=== PATIENT | male | born 1985 | race Caucasian/White ===

== ENCOUNTER 2017-05-05 16:44 | Emergency (ER) | payer OTHER ==
[2017-05-05] MEDS ORDERED: Sodium Chloride 0.9% 1000 ML 1,000 ML IV STA ×2 (17:14→18:01)
[2017-05-05] MEDS ORDERED: Zofran 4 MG/2 ML VIAL IV ONE ×2 (17:14→18:01)
[2017-05-05] MEDS ORDERED: Sodium Chloride 0.9% 1000 ML 1,000 ML ONE ×2 (17:17→18:07)
[2017-05-05] MEDS ORDERED: Zofran 4 MG/2 ML VIAL ONE ×2 (17:17→18:07)
--- NOTE | 2017-05-05 17:19 | ERPHSYRPT ---
- History of Present Illness Time Seen by Provider: 05/05/17 17:16 Historian: patient Exam Limitations: no limitations Patient Subjective Stated Complaint: staes vomiting and fever since yesterday. denies diarrhea, cough. states fever 102.0 before tylenol. generalized bosy aches. states son had the same thing. Triage Nursing Assessment: alert and oriented x3. skin warm/dry. lungs clear bilat. abdomen soft slightly tender he says since he hasnt been able to eat. denies diaarhea. Physician History: 31 y/o male comes to the ER after having 8 episodes of vomiting that started last night. Pt admits to having fever and chills as well. Pt mentions he is not able to keep anything down. Pt's daughter and son had similar symptoms. Pt denies any abdominal pain, bloody stools, or diarrhea. Timing/Duration: yesterday Activities at Onset: none Associated Symptoms: No diarrhea Allergies/Adverse Reactions: No Known Drug Allergies Allergy (Verified 05/05/17 17:06) Home Medications: Duloxetine HCl [Cymbalta] 90 mg PO DAILY 08/17/16 [History] Celecoxib [Celebrex] 200 mg PO DAILY 05/05/17 [History] Gemfibrozil [Lopid] 600 mg PO DAILY 05/05/17 [History] Hx Tetanus, Diphtheria Vaccination/Date Given: Yes (up to date) Hx Influenza Vaccination/Date Given: Yes Hx Pneumococcal Vaccination/Date Given: No - Review of Systems Constitutional: No Fever, No Chills Eyes: No Symptoms Ears, Nose, & Throat: No Symptoms Respiratory: No Cough, No Dyspnea Cardiac: No Chest Pain, No Edema, No Syncope Abdominal/Gastrointestinal: Nausea, Vomiting, No Abdominal Pain, No Diarrhea Genitourinary Symptoms: No Dysuria Musculoskeletal: No Back Pain, No Neck Pain Skin: No Rash Neurological: No Dizziness, No Focal Weakness, No Sensory Changes Psychological: No Symptoms Endocrine: No Symptoms All Other Systems: Reviewed and Negative - Past Medical History Pertinent Past Medical History: Yes Psycho-Social History: Depression - Past Surgical History Past Surgical History: No - Social History Smoking Status: Never smoker Exposure to second hand smoke: No Drug Use: none Patient Lives Alone: No - Nursing Vital Signs Nursing Vital Signs: Initial Vital Signs Temperature 99.1 F 05/05/17 16:48 Pulse Rate 100 H 05/05/17 16:48 Respiratory Rate 20 05/05/17 16:48 Blood Pressure 125/78 05/05/17 16:48 O2 Sat by Pulse Oximetry 97 05/05/17 16:48 Pain Scale Pain Intensity 6 - Physical Exam General Appearance: mild distress, alert Eye Exam: PERRL/EOMI, eyes nml inspection Ears, Nose, Throat Exam: normal ENT inspection, pharynx normal, moist mucous membranes Neck Exam: normal inspection, non-tender, supple, full range of motion Respiratory Exam: normal breath sounds, lungs clear, No respiratory distress Cardiovascular Exam: regular rate/rhythm, normal heart sounds Gastrointestinal/Abdomen Exam: soft, normal bowel sounds, No tenderness, No mass Back Exam: normal inspection, normal range of motion, No CVA tenderness, No vertebral tenderness Extremity Exam: normal inspection, normal range of motion, pelvis stable Neurologic Exam: alert, oriented x 3, cooperative, normal mood/affect, nml cerebellar function, sensation nml, No motor deficits Skin Exam: normal color, warm, dry SpO2: 97 Oxygen Delivery: Room Air - Course Nursing assessment & vital signs reviewed: Yes Ordered Tests: Active Orders 24 hr Category Date Time Status IV Insertion STAT Care 05/05/17 17:15 Active BMP Stat Lab 05/05/17 17:00 Completed CBC W DIFF Stat Lab 05/05/17 17:00 Completed Medication Summary Generic Name Dose Route Start Last Admin Trade Name Freq PRN Reason Stop Dose Admin Sodium Chloride 1,000 mls @ 999 mls/hr 05/05/17 18:01 05/05/17 18:16 Sodium Chloride 0.9% 1000 Ml IV 05/05/17 19:01 999 mls/hr .Q1H1M STA Administration Discontinued Medications Generic Name Dose Route Start Last Admin Trade Name Freq PRN Reason Stop Dose Admin Sodium Chloride 1,000 mls @ 999 mls/hr 05/05/17 17:14 05/05/17 17:18 Sodium Chloride 0.9% 1000 Ml IV 05/05/17 18:14 999 mls/hr .Q1H1M STA Administration Sodium Chloride Confirm 05/05/17 17:17 Sodium Chloride 0.9% 1000 Ml Administered 05/05/17 17:18 Dose 1,000 mls @ ud .ROUTE .STK-MED ONE Sodium Chloride Confirm 05/05/17 18:07 Sodium Chloride 0.9% 1000 Ml Administered 05/05/17 18:08 Dose 1,000 mls @ ud .ROUTE .STK-MED ONE Ketorolac Tromethamine 30 mg 05/05/17 18:02 05/05/17 18:11 Toradol 30 Mg Injection IV 05/05/17 18:03 30 mg STAT ONE Administration Ketorolac Tromethamine Confirm 05/05/17 18:07 Toradol 30 Mg Injection Administered 05/05/17 18:08 Dose 30 mg .ROUTE .STK-MED ONE Ondansetron HCl 4 mg 05/05/17 17:14 05/05/17 17:18 Zofran 4 Mg/2 Ml Vial IV 05/05/17 17:15 4 mg STAT ONE Administration Ondansetron HCl Confirm 05/05/17 17:17 Zofran 4 Mg/2 Ml Vial Administered 05/05/17 17:18 Dose 4 mg .ROUTE .STK-MED ONE Ondansetron HCl 4 mg 05/05/17 18:01 05/05/17 18:12 Zofran 4 Mg/2 Ml Vial IV 05/05/17 18:02 4 mg STAT ONE Administration Ondansetron HCl Confirm 05/05/17 18:07 Zofran 4 Mg/2 Ml Vial Administered 05/05/17 18:08 Dose 4 mg .ROUTE .STK-MED ONE Lab/Rad Data: Laboratory Result Diagrams 05/05/17 17:00 05/05/17 17:00 Laboratory Results 05/05/17 05/05/17 Range/Units 17:00 17:00 WBC 9.0 (4.0-10.5) K/mm3 RBC 4.94 (4.1-5.6) M/mm3 Hgb 14.5 (12.5-18.0) gm/dl Hct 42.5 (42-50) % MCV 86.0 (78-100) fl MCH 29.4 (26-32) pg MCHC 34.1 (32-36) g/dl RDW 13.0 (11.5-14.0) % Plt Count 275 (150-450) K/mm3 MPV 10.8 H (6-9.5) fl Gran % 78.0 H (36.0-66.0) % Lymphocytes % 12.1 L (24.0-44.0) % Monocytes % 9.6 (0.0-12.0) % Eosinophils % 0.1 (0.00-5.0) % Basophils % 0.2 (0.0-0.4) % Basophils # 0.02 (0-0.4) Sodium 140 (136-145) mEq/L Potassium 3.5 (3.5-5.1) mEq/L Chloride 100 (98-107) mEq/L Carbon Dioxide 27.5 (21-32) mEq/L Anion Gap 16.3 H (5-15) MEQ/L BUN 20 (9-20) mg/dL Creatinine 1.40 H (0.55-1.30) mg/dl Estimated GFR > 60 ML/MIN Glucose 105 (70-110) MG/DL Calcium 10.2 H (8.5-10.1) mg/dL - Progress Progress: improved Progress Note: 05/05/17 19:00 Pt feels better after receiving 2 liters of fluids and zofran. The labs are within normal limits. Pt will be d/c home with a diagnosis of gastroenteritis - Departure Time of Disposition: 19:01 Departure Disposition: Home Clinical Impression: Gastroenteritis Condition: Stable Critical Care Time: No Referrals: HOSPITAL,'S [Primary Care Provider] - Instructions: Viral Gastroenteritis -- Adult Additional Instructions: Return to the ER if you should have worsening nausea, vomiting, fever or chills.
[2017-05-05 17:34] LABS: BASOPHIL % 0.2 % (0.0-0.4); Eosinophil % 0.1 % (0.00-5.0); Lymphocytes % 12.1 % (24.0-44.0); Mean Corpuscular Hemoglobin 29.4 pg (26-32); Mean Platelet Volume 10.8 fl (6-9.5); Monocytes % 9.6 % (0.0-12.0); Platelet Count 275 K/mm3 (150-450); Red Blood Count 4.94 M/mm3 (4.1-5.6)
[2017-05-05 17:50] LABS: ANION GAP 16.3 MEQ/L (5-15); BLOOD UREA NITROGEN 20 mg/dL (9-20); CHLORIDE 100 mEq/L (98-107); Carbon Dioxide 27.5 mEq/L (21-32); Glucose 105 MG/DL (70-110); Potassium 3.5 mEq/L (3.5-5.1); SODIUM 140 mEq/L (136-145)
[2017-05-05] MEDS ORDERED: TORAdol 30 mg Injection IV ONE (18:02)
[2017-05-05] MEDS ORDERED: TORAdol 30 mg Injection ONE (18:07)
[2017-05-05 18:20] VITALS: O2SAT 97
[2017-05-05 19:11] VITALS: BP 114/67; PULSE 84
== END 2017-05-05 19:12 | disposition home or self-care (01) ==
LOC: ED 16:44
DX: K52.9 Noninfective gastroenteritis and colitis, unspecified (principal); R50.9 Fever, unspecified; R11.2 Nausea with vomiting, unspecified
CPT/HCPCS: 36000; 36415; 80048; 85025; 96360; 96361; 96374; 96375; 99284; J1885; J2405

== ENCOUNTER 2018-07-24 04:29 | Emergency (ER) | payer OTHER ==
[2018-07-24] MEDS ORDERED: Phenergan 25 MG INJ IV ONE (04:56)
[2018-07-24] MEDS ORDERED: Sodium Chloride 0.9% 1000 ML 1,000 ML IV STA (04:56)
--- NOTE | 2018-07-24 05:01 | ERPHSYRPT ---
- History of Present Illness Exam Limitations: no limitations Patient Subjective Stated Complaint: pt states he has been having mid abd pain since approx 0100. states he has had this kind of pain previously and is usually able to make th pain go away with gas x, tums, and chamomile tea Triage Nursing Assessment: pt alert and oriented, answers questions approp. pt ambulatory with steady gait ntoed. respirations nonlabored withlungs cta. abd soft, tender to lihgt palpation, bowel sounds present, hypo. Timing/Duration: today (1 AM this morning) Activities at Onset: none Quality: pressure Abdominal Pain Onset Location: epigastric, periumbilical Pain Radiation: no radiation Severity of Pain-Max: moderate Severity of Pain-Current: moderate Modifying Factors: Improves With: nothing Associated Symptoms: nausea, No back, No chest pain, No diaphoresis, No diarrhea , No fever/chills, No fatigue, No headache, No heartburn, No loss of appetite, No neck pain, No rash, No shortness of breath, No syncope, No vomiting, No weakness Previous symptoms: other (patient states he occasionally gets the above noted complaints that usually goes away) Hx Tetanus, Diphtheria Vaccination/Date Given: Yes (up to date) Hx Influenza Vaccination/Date Given: Yes (2017) Hx Pneumococcal Vaccination/Date Given: No Immunizations Up to Date: Yes <CONCEPCION RIBEIRO - Last Filed: 07/24/18 07:06> <NARENDRA CHAN - Last Filed: 07/24/18 09:59> - History of Present Illness Time Seen by Provider: 07/24/18 04:52 Physician History: 32-year-old white male with history of depression, anxiety, arrives with complaint of periumbilical epigastric abdominal pain since 1:00 is morning positive nausea no vomiting no diarrhea no fevers. Past medical history includes depression, anxiety Past surgical history is negative. Social history denies tobacco alcohol or illicit drug use. (CONCEPCION RIBEIRO) Allergies/Adverse Reactions: No Known Drug Allergies Allergy (Verified 07/24/18 05:00) Home Medications: Duloxetine HCl [Cymbalta] 90 mg PO DAILY 08/17/16 [History] Celecoxib [Celebrex] 200 mg PO DAILY 05/05/17 [History] Gemfibrozil [Lopid] 600 mg PO DAILY 05/05/17 [History] - Review of Systems Constitutional: No Fever, No Chills Eyes: No Symptoms Ears, Nose, & Throat: No Symptoms Respiratory: No Cough, No Dyspnea Cardiac: No Chest Pain, No Edema, No Syncope Abdominal/Gastrointestinal: No Symptoms, Abdominal Pain (periumbilical and epigastric abdominal pain), Nausea, No Vomiting, No Diarrhea, No Constipation, No Hematemesis, No Hematochezia, No Melena, No Dysphagia, No Appetite Changes Genitourinary Symptoms: No Dysuria Musculoskeletal: No Back Pain, No Neck Pain Skin: No Rash Neurological: No Dizziness, No Focal Weakness, No Sensory Changes Psychological: No Symptoms Endocrine: No Symptoms All Other Systems: Reviewed and Negative <CONCEPCION RIBEIRO - Last Filed: 07/24/18 07:06> - Past Medical History Pertinent Past Medical History: Yes Musculoskeletal History: Osteoarthritis Psycho-Social History: Anxiety, Depression - Past Surgical History Past Surgical History: No - Social History Smoking Status: Never smoker Exposure to second hand smoke: No Drug Use: none Patient Lives Alone: No <CONCEPCION RIBEIRO - Last Filed: 07/24/18 07:06> - Physical Exam General Appearance: alert Eye Exam: PERRL/EOMI, eyes nml inspection Ears, Nose, Throat Exam: normal ENT inspection, pharynx normal, moist mucous membranes Neck Exam: normal inspection, non-tender, supple, full range of motion Respiratory Exam: normal breath sounds, lungs clear, No respiratory distress Cardiovascular Exam: regular rate/rhythm, normal heart sounds, normal peripheral pulses, capillary refill <2 sec Gastrointestinal/Abdomen Exam: soft, normal bowel sounds, tenderness ( periumbilical and epigastric tenderness), No distention, No mass, No guarding, No ecchymosis, No pulsatile mass, No rebound, No hernia, No hepatomegaly, No organomegaly, No splenomegaly, No bruit Back Exam: normal inspection, normal range of motion, No CVA tenderness, No vertebral tenderness Extremity Exam: normal inspection, normal range of motion, pelvis stable Neurologic Exam: alert, oriented x 3, cooperative, national sales associate II-XII nml as tested, normal mood/affect, nml cerebellar function, sensation nml, No motor deficits Skin Exam: normal color, warm, dry SpO2 Interpretation: normal (98%) SpO2: 98 Oxygen Delivery: Room Air <CONCEPCION RIBEIRO - Last Filed: 07/24/18 07:06> - Nursing Vital Signs Nursing Vital Signs: Initial Vital Signs Temperature 97.4 F 07/24/18 04:40 Pulse Rate 61 07/24/18 04:40 Respiratory Rate 18 07/24/18 04:40 Blood Pressure 126/81 07/24/18 04:40 O2 Sat by Pulse Oximetry 98 07/24/18 04:40 Pain Scale Pain Intensity 4 - CT Exams Abdomen/Pelvis CT Interpretation: Tele-radiologist Report (LAYERING HIGH DENSITY MATERIAL IN THE GALLBLADDER LIKELY REPRESENTS MULTIPLE SMALL GALLSTONES. THE GALLBLADDER IS MILDLY DISTENDED, MEASURING APPROXIMATELY 10 CM IN LENGTH. THE WALL MAY BE SLIGHTLY THICKENED WELL, NORMAL APPENDIX) <NARENDRA CHAN - Last Filed: 07/24/18 09:59> Ordered Tests: Active Orders 24 hr Category Date Time Status IV Insertion STAT Care 07/24/18 04:56 Active ABDOMEN AND PELVIS W CONTRAST [CT] Stat Exams 07/24/18 06:19 Taken AMYLASE Stat Lab 07/24/18 05:00 Completed CBC W DIFF Stat Lab 07/24/18 05:00 Completed CMP Stat Lab 07/24/18 05:00 Completed LIPASE Stat Lab 07/24/18 05:00 Completed UA W/RFX UR CULTURE Stat Lab 07/24/18 06:09 Completed Urine Triage Profile Stat Lab 07/24/18 06:09 Completed Medication Summary Generic Name Dose Route Start Last Admin Trade Name Freq PRN Reason Stop Dose Admin Morphine Sulfate 4 mg 07/24/18 09:09 Morphine Sulfate 4 Mg Inj IV 07/29/18 09:08 Q4H PRN PRN PAIN Discontinued Medications Generic Name Dose Route Start Last Admin Trade Name Freq PRN Reason Stop Dose Admin Sodium Chloride 1,000 mls @ 999 mls/hr 07/24/18 04:56 07/24/18 06:55 Sodium Chloride 0.9% 1000 Ml IV 07/24/18 05:56 Infused .Q1H1M STA Infusion Sodium Chloride Confirm 07/24/18 05:05 Sodium Chloride 0.9% 1000 Ml Administered 07/24/18 05:06 Dose 1,000 mls @ ud .ROUTE .STK-MED ONE Morphine Sulfate 4 mg 07/24/18 08:12 07/24/18 08:32 Morphine Sulfate 4 Mg Inj IV 07/24/18 08:13 Not Given STAT ONE Morphine Sulfate Confirm 07/24/18 08:23 Morphine Sulfate 4 Mg Inj Administered 07/24/18 08:24 Dose 4 mg .ROUTE .STK-MED ONE Promethazine HCl 12.5 mg 07/24/18 04:56 07/24/18 05:09 Phenergan 25 Mg Inj IV 07/24/18 04:57 12.5 mg STAT ONE Administration Promethazine HCl Confirm 07/24/18 05:05 Phenergan 25 Mg Inj Administered 07/24/18 05:06 Dose 25 mg .ROUTE .STK-MED ONE Lab/Rad Data: Laboratory Result Diagrams 07/24/18 05:00 07/24/18 05:00 Laboratory Results 07/24/18 07/24/18 07/24/18 Range/Units 06:09 06:09 05:00 WBC (4.0-10.5) K/mm3 RBC (4.1-5.6) M/mm3 Hgb (12.5-18.0) gm/dl Hct (42-50) % MCV (78-100) fl MCH (26-32) pg MCHC (32-36) g/dl RDW (11.5-14.0) % Plt Count (150-450) K/mm3 MPV (6-9.5) fl Gran % (36.0-66.0) % Eos # (Auto) (0-0.5) Absolute Lymphs (auto) (1.0-4.6) Absolute Monos (auto) (0.0-1.3) Lymphocytes % (24.0-44.0) % Monocytes % (0.0-12.0) % Eosinophils % (0.00-5.0) % Basophils % (0.0-0.4) % Absolute Granulocytes (1.4-6.9) Basophils # (0-0.4) Sodium 139 (137-145) mmol/L Potassium 4.0 (3.5-5.1) mmol/L Chloride 99 (98-107) mmol/L Carbon Dioxide 27 (22-30) mmol/L Anion Gap 16.5 H (5-15) MEQ/L BUN 25 H (9-20) mg/dL Creatinine 1.13 (0.66-1.25) mg/dL Estimated GFR > 60.0 ML/MIN Glucose 109 H (74-106) mg/dL Calcium 10.4 H (8.4-10.2) mg/dL Total Bilirubin 0.70 (0.2-1.3) mg/dL AST 28 (17-59) U/L ALT 43 (0-50) U/L Alkaline Phosphatase 54 (38-126) U/L Serum Total Protein 8.0 (6.3-8.2) g/dL Albumin 5.1 H (3.5-5.0) g/dL Amylase 52 (30-110) U/L Lipase 54 (23-300) U/L Urine Color YELLOW (YELLOW) Urine Appearance CLEAR (CLEAR) Urine pH 5.0 (5-6) Ur Specific [place] 1.021 (1.005-1.025) Urine Protein NEGATIVE (Negative) Urine Ketones NEGATIVE (NEGATIVE) Urine Blood NEGATIVE (0-5) Aj/ul Urine Nitrite NEGATIVE (NEGATIVE) Urine Bilirubin NEGATIVE (NEGATIVE) Urine Urobilinogen NEGATIVE (0-1) mg/dL Ur Leukocyte Esterase NEGATIVE (NEGATIVE) Urine WBC (Auto) NONE (0-5) /HPF Urine RBC (Auto) NONE (0-2) /HPF Urine Mucus (Auto) SLIGHT (NEGATIVE) /HPF Urine Culture Reflexed NO (NO) Urine Glucose NEGATIVE (NEGATIVE) mg/dL Urine Opiates Level NEGATIVE (NEGATIVE) Ur Methadone NEGATIVE (NEGATIVE) Urine Barbiturates NEGATIVE (NEGATIVE) Ur Phencyclidine (PCP) NEGATIVE (NEGATIVE) Urine Amphetamine NEGATIVE (NEGATIVE) U Benzodiazepine Level NEGATIVE (NEGATIVE) Urine Cocaine NEGATIVE (NEGATIVE) Urine Marijuana (THC) NEGATIVE (NEGATIVE) 07/24/18 Range/Units 05:00 WBC 5.0 (4.0-10.5) K/mm3 RBC 4.57 (4.1-5.6) M/mm3 Hgb 13.4 (12.5-18.0) gm/dl Hct 39.2 L (42-50) % MCV 85.8 (78-100) fl MCH 29.3 (26-32) pg MCHC 34.2 (32-36) g/dl RDW 12.7 (11.5-14.0) % Plt Count 300 (150-450) K/mm3 MPV 10.2 H (6-9.5) fl Gran % 41.8 (36.0-66.0) % Eos # (Auto) 0.18 (0-0.5) Absolute Lymphs (auto) 2.24 (1.0-4.6) Absolute Monos (auto) 0.43 (0.0-1.3) Lymphocytes % 45.1 H (24.0-44.0) % Monocytes % 8.7 (0.0-12.0) % Eosinophils % 3.6 (0.00-5.0) % Basophils % 0.8 (0.0-0.4) % Absolute Granulocytes 2.08 (1.4-6.9) Basophils # 0.04 (0-0.4) Sodium (137-145) mmol/L Potassium (3.5-5.1) mmol/L Chloride (98-107) mmol/L Carbon Dioxide (22-30) mmol/L Anion Gap (5-15) MEQ/L BUN (9-20) mg/dL Creatinine (0.66-1.25) mg/dL Estimated GFR ML/MIN Glucose (74-106) mg/dL Calcium (8.4-10.2) mg/dL Total Bilirubin (0.2-1.3) mg/dL AST (17-59) U/L ALT (0-50) U/L Alkaline Phosphatase (38-126) U/L Serum Total Protein (6.3-8.2) g/dL Albumin (3.5-5.0) g/dL Amylase (30-110) U/L Lipase (23-300) U/L Urine Color (YELLOW) Urine Appearance (CLEAR) Urine pH (5-6) Ur Specific [place] (1.005-1.025) Urine Protein (Negative) Urine Ketones (NEGATIVE) Urine Blood (0-5) Aj/ul Urine Nitrite (NEGATIVE) Urine Bilirubin (NEGATIVE) Urine Urobilinogen (0-1) mg/dL Ur Leukocyte Esterase (NEGATIVE) Urine WBC (Auto) (0-5) /HPF Urine RBC (Auto) (0-2) /HPF Urine Mucus (Auto) (NEGATIVE) /HPF Urine Culture Reflexed (NO) Urine Glucose (NEGATIVE) mg/dL Urine Opiates Level (NEGATIVE) Ur Methadone (NEGATIVE) Urine Barbiturates (NEGATIVE) Ur Phencyclidine (PCP) (NEGATIVE) Urine Amphetamine (NEGATIVE) U Benzodiazepine Level (NEGATIVE) Urine Cocaine (NEGATIVE) Urine Marijuana (THC) (NEGATIVE) - Progress Progress: improved <CONCEPCION RIBEIRO - Last Filed: 07/24/18 07:06> - Progress Counseled pt/family regarding: lab results, diagnosis, need for follow-up, rad results <NARENDRA CHAN - Last Filed: 07/24/18 09:59> - Progress Progress Note: 07/24/18 06:19 32-year-old white male arrives with complaint of epigastric and. Umbilical abdominal pain. Patient's CBC CMP amylase lipase within normal limits. . Patient apparently unable to provide a urine. He states he still has abdominal pain We'll go ahead and obtain CT abdomen and pelvis with contrast 07/24/18 07:05 CT is pending, I have discussed the case with , he will assume care of this patient due to shift change. (CONCEPCION RIBEIRO) 07/24/18 08:18 EXAM: ABDOMINAL-MODERATE TENDERNESS UPON DEEP PALPATION OF RIGHT UPPER QUADRANT WITH GUARDING, NO REBOUND TENDERNESS 07/24/18 09:21 ADMINISTERED MORPHINE 4MG IV (NARENDRA CHAN) <CONCEPCION RIBEIRO - Last Filed: 07/24/18 07:06> - Departure Time of Disposition: 10:02 Departure Disposition: Home Critical Care Time: No <NARENDRA CHAN - Last Filed: 07/24/18 09:59> - Departure Clinical Impression: BILARY COLIC, CHOLELITHIASIS Condition: Stable Referrals: HOSPITAL,'S [Primary Care Provider] - Additional Instructions: CALL DR OCHOA OFFICE TOMORROW TO SCHEDULE AN APPOINTMENT. AVOID GREASY OR SPICY FOODS. ZOFRAN 4MG EVERY 6 HOURS FOR NAUSEA. NORCO 10/325 EVERY 6 HOURS FOR PAIN. RETURN TO EMERGENCY FOR ONSET OF FEVER, PERSISTENT VOMITING OR PAIN. Prescriptions: Hydrocodone/APAP 10/325 mg [[place] 10/325 MG Tablet] 1 tab PO Q6H PRN PRN # 10 tablet MDD 4 PRN Reason: Pain Ondansetron ODT 4 MG [Zofran Odt 4 mg] 4 mg PO Q6H PRN PRN #8 tab.rapdis PRN Reason: Nausea
[2018-07-24] MEDS ORDERED: Sodium Chloride 0.9% 1000 ML 1,000 ML ONE (05:05)
[2018-07-24] MEDS ORDERED: Phenergan 25 MG INJ ONE (05:05)
[2018-07-24 05:11] LABS: BASOPHIL % 0.8 % (0.0-0.4); Basophil (Absolute #) 0.04 (0-0.4); Eosinophil % 3.6 % (0.00-5.0); Eosinophil (Absolute #) 0.18 (0-0.5); Granulocyte Absolute (ANC) 2.08 (1.4-6.9); Granulocytes % 41.8 % (36.0-66.0); Hematocrit 39.2 % (42-50); Hemoglobin 13.4 gm/dl (12.5-18.0); Lymphocyte (Absolute #) 2.24 (1.0-4.6); Lymphocytes % 45.1 % (24.0-44.0); Mean Cell Volume 85.8 fl (78-100); Mean Corpuscular Hemoglobin 29.3 pg (26-32); Mean Corpuscular Hgb Concent. 34.2 g/dl (32-36); Mean Platelet Volume 10.2 fl (6-9.5); Monocyte (Absolute #) 0.43 (0.0-1.3); Monocytes % 8.7 % (0.0-12.0); Platelet Count 300 K/mm3 (150-450); Red Blood Count 4.57 M/mm3 (4.1-5.6); Red Cell Distribution Width 12.7 % (11.5-14.0)
[2018-07-24 05:28] LABS: ALBUMIN 5.1 g/dL (3.5-5.0); ALKALINE PHOSPHATASE 54 U/L (38-126); AMYLASE 52 U/L (30-110); ANION GAP 16.5 MEQ/L (5-15); BLOOD UREA NITROGEN 25 mg/dL (9-20); CHLORIDE 99 mmol/L (98-107); Calcium 10.4 mg/dL (8.4-10.2); Carbon Dioxide 27 mmol/L (22-30); Creatinine 1 1.13 mg/dL (0.66-1.25); Glucose 109 mg/dL (74-106); LIPASE 54 U/L (23-300); SGOT/AST 28 U/L (17-59); SGPT/ALT 43 U/L (0-50); SODIUM 139 mmol/L (137-145)
[2018-07-24 06:31] LABS: Appearance CLEAR (CLEAR); Bilirubin NEGATIVE (NEGATIVE); Blood NEGATIVE Ery/ul (0-5); Glucose NEGATIVE (NEGATIVE); Ketones NEGATIVE (NEGATIVE); Leukocyte Esterase NEGATIVE (NEGATIVE); Nitrite NEGATIVE (NEGATIVE); Protein,Urine Dip NEGATIVE (Negative); Specific Gravity 1.021 (1.005-1.025); Urobilinogen NEGATIVE mg/dL (0-1)
[2018-07-24 06:45] LABS: Amphetamine,Urine NEGATIVE (NEGATIVE); Barbiturate,Urine NEGATIVE (NEGATIVE); Benzodiazepine,Urine NEGATIVE (NEGATIVE); Cocaine,Urine NEGATIVE (NEGATIVE); Methadone,Urine NEGATIVE (NEGATIVE); Opiate,Urine NEGATIVE (NEGATIVE); PCP,Urine NEGATIVE (NEGATIVE); THC,Urine NEGATIVE (NEGATIVE)
[2018-07-24] MEDS ORDERED: MORPHINE SULFATE 4 MG INJ ONE (08:23)
[2018-07-24] MEDS: MORPHINE SULFATE 4 MG INJ IV ONE ×2 (08:25→08:32)
[2018-07-24] MEDS ORDERED: MORPHINE SULFATE 4 MG INJ IV PRN (09:09)
[2018-07-24 10:03] VITALS: BP 130/89; PULSE 70; O2SAT 98
--- NOTE | 2018-07-24 11:01 | XRAY ---
Indication: Periumbilical pain. Multiple contiguous axial images obtained through the abdomen and pelvis using 80 cc Isovue-370 contrast only. Comparison: None Lung bases demonstrates minimal dependent atelectasis. No infiltrate or effusion. 7 mm noncalcified subpleural nodule in the left posterior gutter. Heart is not enlarged. Noncontrasted stomach and bowel loops appear nonobstructed. Normal appendix. Mild diffuse scattered colonic fecal debris. No free fluid/air. Gallbladder moderately distended with gallstones in the neck of the gallbladder, largest 12 mm. Query borderline wall thickening. No abnormal biliary distention. Mild fatty liver. Remaining pancreas, spleen, adrenal glands, kidneys, ureters, bladder, and aorta appear unremarkable. No pathologic retroperitoneal lymphadenopathy. Osseous structures intact. No ventral or inguinal hernias. Impression: 1. Distended gallbladder with cholelithiasis. Query borderline wall thickening. Gallbladder sonogram medial further information. 2. Mild fecal stasis without obstruction. 3. Mild fatty liver. 4. Incidental left lung base subcentimeter noncalcified nodule, probably granulomatous in this demographic. Comment: Preliminary interpretation was made by [facility]. Left lung base nodule not reported and not felt to be critical finding. CTDI 21.20
== END 2018-07-24 10:15 ==
LOC: ED 04:29
DX: K80.50 Calculus of bile duct without cholangitis or cholecystitis without obstruction (principal); K80.20 Calculus of gallbladder without cholecystitis without obstruction; R11.0 Nausea; Z79.899 Other long term (current) drug therapy
CPT/HCPCS: 36000; 36415; 74177; 80053; 80307; 81001; 82150; 83690; 85025; 96360; 96374; 99284; J2270; J2550

== ENCOUNTER 2018-08-26 11:35 | Emergency (ER) | payer OTHER ==
[2018-08-26] MEDS ORDERED: TORAdol 30 mg Injection IV ONE (12:00)
[2018-08-26] MEDS ORDERED: Sodium Chloride 0.9% 1000 ML 1,000 ML IV SCH (12:00)
[2018-08-26] MEDS ORDERED: Hydromorphone 1 mg/ml Ampule IV ONE (12:00)
[2018-08-26] MEDS ORDERED: Pepcid 20 MG VIAL IV ONE ×2 (12:00→12:23)
--- NOTE | 2018-08-26 12:04 | ERPHSYRPT ---
- History of Present Illness Time Seen by Provider: 08/26/18 12:00 Historian: patient Exam Limitations: clinical condition Patient Subjective Stated Complaint: pt here for pain to epigastric that wraps around to back, with nausea, pt is scheduled for removal of gallbadder in September, Triage Nursing Assessment: pt alert, resp easy, pt holding abd , abd soft, no edema Physician History: PATIENT WITH A HISTORY OF GALL STONES, EVALUATED BY GENERAL SURGEON YESTERDAY AND IS SCHEDULED FOR CHOLECYSTECTOMY Sep. PATIENT COMPLAINS OF SEVERE RIGHT UPPER ABDOMINAL PAIN SINCE 3AM ASSOCIATED WITH NAUSEA. STATES PAIN SEVERE PAIN SCALE 8/10, RADIATES TO RIGHT SHOULDER BLADE. DENIES FEVER, DIARRHEA, URINARY SYMPTOMS. Timing/Duration: today Activities at Onset: none Quality: stabbing, throbbing Abdominal Pain Onset Location: RUQ Pain Radiation: back Severity of Pain-Max: moderate Severity of Pain-Current: moderate Modifying Factors: Improves With: vomiting Associated Symptoms: nausea, vomiting Previous symptoms: same symptoms as today Allergies/Adverse Reactions: No Known Drug Allergies Allergy (Verified 08/26/18 11:58) Home Medications: Duloxetine HCl [Cymbalta] 90 mg PO DAILY 08/17/16 [History] Celecoxib [Celebrex] 200 mg PO DAILY 05/05/17 [History] Gemfibrozil [Lopid] 600 mg PO DAILY 05/05/17 [History] Hx Tetanus, Diphtheria Vaccination/Date Given: Yes Hx Influenza Vaccination/Date Given: Yes (2017) Hx Pneumococcal Vaccination/Date Given: No Immunizations Up to Date: Yes - Review of Systems Constitutional: No Symptoms, No Fever, No Chills Eyes: No Symptoms Ears, Nose, & Throat: No Symptoms Respiratory: No Symptoms, No Cough, No Dyspnea Cardiac: No Symptoms, No Chest Pain, No Edema, No Syncope Abdominal/Gastrointestinal: Abdominal Pain, Nausea, No Vomiting, No Diarrhea Genitourinary Symptoms: No Dysuria Musculoskeletal: No Back Pain, No Neck Pain Skin: No Rash Neurological: No Symptoms, No Dizziness, No Focal Weakness, No Sensory Changes Psychological: No Symptoms Endocrine: No Symptoms All Other Systems: Reviewed and Negative - Past Medical History Pertinent Past Medical History: Yes Musculoskeletal History: Osteoarthritis GI Medical History: Gallbladder Disease Psycho-Social History: Anxiety, Depression - Past Surgical History Past Surgical History: No - Social History Smoking Status: Never smoker Exposure to second hand smoke: No Drug Use: none Patient Lives Alone: No - Nursing Vital Signs Nursing Vital Signs: Initial Vital Signs Temperature 98.5 F 08/26/18 11:47 Pulse Rate 84 08/26/18 11:47 Respiratory Rate 18 08/26/18 11:47 Blood Pressure 153/88 08/26/18 11:47 O2 Sat by Pulse Oximetry 98 08/26/18 11:47 Pain Scale Pain Intensity 5 - Physical Exam General Appearance: mild distress Eye Exam: PERRL/EOMI, eyes nml inspection Ears, Nose, Throat Exam: normal ENT inspection, pharynx normal, moist mucous membranes Neck Exam: normal inspection, non-tender, supple, full range of motion Respiratory Exam: normal breath sounds Cardiovascular Exam: regular rate/rhythm, normal heart sounds Gastrointestinal/Abdomen Exam: soft, normal bowel sounds, tenderness (RIGHT UPPER QUAD TENDERNESS) Back Exam: normal inspection Extremity Exam: normal inspection Neurologic Exam: alert, oriented x 3, cooperative Skin Exam: normal color, warm SpO2 Interpretation: normal SpO2: 98 Oxygen Delivery: Room Air - CT Exams Abdomen/Pelvis CT Interpretation: Discussed w/radiologist (STABLE CT ABDOMINAL/PELVIS WITH GALLSTONES/GRAVEL, MILD FATTY LIVER NO NEW/ACUTE CHANGES) Ordered Tests: Active Orders 24 hr Category Date Time Status Clean Catch Urine Specimen STAT Care 08/26/18 12:00 Active IV Insertion STAT Care 08/26/18 12:00 Active ABDOMEN AND PELVIS W CONTRAST [CT] Stat Exams 08/26/18 12:00 Completed AMYLASE Stat Lab 08/26/18 12:26 Completed CBC W DIFF Stat Lab 08/26/18 12:26 Completed CMP Stat Lab 08/26/18 12:26 Completed LIPASE Stat Lab 08/26/18 12:26 Completed UA W/RFX UR CULTURE Stat Lab 08/26/18 12:37 Completed Medication Summary Generic Name Dose Route Start Last Admin Trade Name Freq PRN Reason Stop Dose Admin Sodium Chloride 1,000 mls @ 500 mls/hr 08/26/18 12:00 08/26/18 12:24 Sodium Chloride 0.9% 1000 Ml IV 09/25/18 11:59 500 mls/hr .Q2H KAILEE Administration Discontinued Medications Generic Name Dose Route Start Last Admin Trade Name Freq PRN Reason Stop Dose Admin Famotidine 20 mg 08/26/18 12:00 08/26/18 12:25 Pepcid 20 Mg Vial IV 08/26/18 12:01 20 mg STAT ONE Administration Famotidine Confirm 08/26/18 12:23 Pepcid 20 Mg Vial Administered 08/26/18 12:24 Dose 20 mg IV .STK-MED ONE Hydromorphone HCl 1 mg 08/26/18 12:00 08/26/18 12:25 Hydromorphone 1 Mg/Ml Ampule IV 08/26/18 12:01 1 mg STAT ONE Administration Hydromorphone HCl Confirm 08/26/18 12:23 Hydromorphone 1 Mg/Ml Ampule Administered 08/26/18 12:24 Dose 1 mg .ROUTE .STK-MED ONE Ketorolac Tromethamine 30 mg 08/26/18 12:00 08/26/18 12:26 Toradol 30 Mg Injection IV 08/26/18 12:01 30 mg STAT ONE Administration Ketorolac Tromethamine Confirm 08/26/18 12:23 Toradol 30 Mg Injection Administered 08/26/18 12:24 Dose 30 mg .ROUTE .STK-MED ONE Lab/Rad Data: Laboratory Result Diagrams 08/26/18 12:26 08/26/18 12:26 Laboratory Results 08/26/18 08/26/18 08/26/18 Range/Units 12:37 12:26 12:26 WBC 8.7 (4.0-10.5) K/mm3 RBC 4.81 (4.1-5.6) M/mm3 Hgb 14.4 (12.5-18.0) gm/dl Hct 40.8 L (42-50) % MCV 84.8 (78-100) fl MCH 29.9 (26-32) pg MCHC 35.3 (32-36) g/dl RDW 12.3 (11.5-14.0) % Plt Count 355 (150-450) K/mm3 MPV 10.2 H (6-9.5) fl Gran % 78.9 H (36.0-66.0) % Eos # (Auto) 0.03 (0-0.5) Absolute Lymphs (auto) 1.36 (1.0-4.6) Absolute Monos (auto) 0.42 (0.0-1.3) Lymphocytes % 15.7 L (24.0-44.0) % Monocytes % 4.8 (0.0-12.0) % Eosinophils % 0.3 (0.00-5.0) % Basophils % 0.3 (0.0-0.4) % Absolute Granulocytes 6.83 (1.4-6.9) Basophils # 0.03 (0-0.4) Sodium 143 (137-145) mmol/L Potassium 4.3 (3.5-5.1) mmol/L Chloride 104 (98-107) mmol/L Carbon Dioxide 25 (22-30) mmol/L Anion Gap 18.6 H (5-15) MEQ/L BUN 24 H (9-20) mg/dL Creatinine 1.21 (0.66-1.25) mg/dL Estimated GFR > 60.0 ML/MIN Glucose 101 (74-106) mg/dL Calcium 10.6 H (8.4-10.2) mg/dL Total Bilirubin 0.80 (0.2-1.3) mg/dL AST 29 (17-59) U/L ALT 33 (0-50) U/L Alkaline Phosphatase 61 (38-126) U/L Serum Total Protein 9.2 H (6.3-8.2) g/dL Albumin 5.7 H (3.5-5.0) g/dL Amylase 70 (30-110) U/L Lipase 47 (23-300) U/L Urine Color YELLOW (YELLOW) Urine Appearance CLEAR (CLEAR) Urine pH 5.0 (5-6) Ur Specific [place] 1.026 (1.005-1.025) Urine Protein NEGATIVE (Negative) Urine Ketones NEGATIVE (NEGATIVE) Urine Blood NEGATIVE (0-5) Aj/ul Urine Nitrite NEGATIVE (NEGATIVE) Urine Bilirubin NEGATIVE (NEGATIVE) Urine Urobilinogen NEGATIVE (0-1) mg/dL Ur Leukocyte Esterase NEGATIVE (NEGATIVE) Urine WBC (Auto) NONE (0-5) /HPF Urine RBC (Auto) NONE (0-2) /HPF Urine Mucus (Auto) SLIGHT (NEGATIVE) /HPF Urine Culture Reflexed NO (NO) Urine Glucose NEGATIVE (NEGATIVE) mg/dL - Progress Progress Note: 08/26/18 13:29 ADMINISTERED IV NORMAL SALINE 500ML/HR, ZOFRAN 4MG, TORADOL 30MG, DILAUDID 1MG AND PEPCID 20MG IVPB 08/26/18 13:30,ALL LAB TESTS REVIEWED AND ARE NORMAL Counseled pt/family regarding: diagnosis, rad results - Departure Time of Disposition: 13:34 Departure Disposition: Home Clinical Impression: BILIARY COLIC, CHOLELITHIASIS Condition: Stable Critical Care Time: No Referrals: HOSPITAL,'S [Primary Care Provider] - Additional Instructions: NORCO 10/325 EVERY 6 HOURS NEEDED FOR PAIN AND ZOFRAN 4MG EVERY 6 HOURS FOR PAIN. CONSULT YOUR GENERAL SURGEON FOR FOLLOWUP. RETURN TO EMERGENCY FOR INCREASING PAIN OR VOMITING. Prescriptions: Hydrocodone/APAP 10/325 mg [[place] 10/325 MG Tablet] 1 tab PO Q6H PRN PRN 3 Days #12 tablet MDD 4 PRN Reason: Pain Ondansetron ODT 4 MG [Zofran Odt 4 mg] 4 mg PO Q6H PRN PRN #10 tab.rapdis PRN Reason: Nausea
[2018-08-26] MEDS ORDERED: Hydromorphone 1 mg/ml Ampule ONE (12:23)
[2018-08-26] MEDS ORDERED: Sodium Chloride 0.9% 1000 ML 1,000 ML ONE (12:23)
[2018-08-26] MEDS ORDERED: TORAdol 30 mg Injection ONE (12:23)
[2018-08-26 12:28] LABS: BASOPHIL % 0.3 % (0.0-0.4); Basophil (Absolute #) 0.03 (0-0.4); Eosinophil % 0.3 % (0.00-5.0); Eosinophil (Absolute #) 0.03 (0-0.5); Granulocyte Absolute (ANC) 6.83 (1.4-6.9); Granulocytes % 78.9 % (36.0-66.0); Hematocrit 40.8 % (42-50); Hemoglobin 14.4 gm/dl (12.5-18.0); Lymphocyte (Absolute #) 1.36 (1.0-4.6); Lymphocytes % 15.7 % (24.0-44.0); Mean Cell Volume 84.8 fl (78-100); Mean Corpuscular Hemoglobin 29.9 pg (26-32); Mean Corpuscular Hgb Concent. 35.3 g/dl (32-36); Mean Platelet Volume 10.2 fl (6-9.5); Monocyte (Absolute #) 0.42 (0.0-1.3); Monocytes % 4.8 % (0.0-12.0); Platelet Count 355 K/mm3 (150-450); Red Blood Count 4.81 M/mm3 (4.1-5.6); Red Cell Distribution Width 12.3 % (11.5-14.0); White Blood Count 8.7 K/mm3 (4.0-10.5)
[2018-08-26 12:40] LABS: Appearance CLEAR (CLEAR); Bilirubin NEGATIVE (NEGATIVE); Blood NEGATIVE Ery/ul (0-5); Glucose NEGATIVE (NEGATIVE); Ketones NEGATIVE (NEGATIVE); Leukocyte Esterase NEGATIVE (NEGATIVE); Nitrite NEGATIVE (NEGATIVE); Protein,Urine Dip NEGATIVE (Negative); Specific Gravity 1.026 (1.005-1.025); Urobilinogen NEGATIVE mg/dL (0-1)
[2018-08-26 12:40] LABS: ALBUMIN 5.7 g/dL (3.5-5.0); ALKALINE PHOSPHATASE 61 U/L (38-126); AMYLASE 70 U/L (30-110); ANION GAP 18.6 MEQ/L (5-15); BLOOD UREA NITROGEN 24 mg/dL (9-20); CHLORIDE 104 mmol/L (98-107); Calcium 10.6 mg/dL (8.4-10.2); Carbon Dioxide 25 mmol/L (22-30); Creatinine 1 1.21 mg/dL (0.66-1.25); Glucose 101 mg/dL (74-106); LIPASE 47 U/L (23-300); Potassium 4.3 mmol/L (3.5-5.1); SGOT/AST 29 U/L (17-59); SGPT/ALT 33 U/L (0-50); SODIUM 143 mmol/L (137-145); Total Protein 9.2 g/dL (6.3-8.2)
--- NOTE | 2018-08-26 13:26 | XRAY ---
Indication: Right upper quadrant pain. Gallstones. Multiple contiguous axial images obtained through the abdomen and pelvis using 80 cc Isovue 370 contrast only. Comparison: July 24, 2018. Lung bases demonstrate stable subcentimeter noncalcified nodule in the left posterior gutter. No infiltrate or effusion. Heart is not enlarged. Noncontrasted stomach and bowel loops again nonobstructed with normal appendix. No free fluid/air. Stable gallstones/gravel and mild fatty liver. Remaining liver, gallbladder, pancreas, spleen, adrenal glands, kidneys, ureters, bladder, and aorta appear unremarkable. No pathologic retroperitoneal lymphadenopathy. Osseous structures intact. No ventral or inguinal hernias. Impression: Stable CT abdomen/pelvis with contrast exam again demonstrating gallstones/gravel, mild fatty liver, and left lung base noncalcified nodule. No new/acute CT DI 19.30.
[2018-08-26 13:52] VITALS: BP 156/86; PULSE 90; O2SAT 99
== END 2018-08-26 14:14 | disposition home or self-care (01) ==
LOC: ED 11:35
DX: K80.70 Calculus of gallbladder and bile duct without cholecystitis without obstruction (principal); R11.2 Nausea with vomiting, unspecified; Z79.899 Other long term (current) drug therapy
CPT/HCPCS: 36000; 36415; 74177; 80053; 81001; 82150; 83690; 85025; 96360; 96361; 96374; 96375; 99284; J1170; J1885